=== PATIENT | male | born 1995 | race Caucasian/White ===

== ENCOUNTER 2018-08-06 20:57 | Emergency (ER) | payer OTHER ==
--- NOTE | 2018-08-06 23:49 | ED Physician Chart ---
ED Chief Complaint/HPI - Patient Information Date Seen:: 08/06/18 Time Seen:: 21:00 Chief Complaint:: Sore Throat History of Present Illness:: onset x 2 days of S/T, fever, cough, and congestion; pt denies trauma, H/As, E/ As, neck pain, C/P, SOB, Abd. 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:: Allergies Allergy/AdvReac Type Severity Reaction Status Date / Time No Known Allergies Allergy Verified 08/06/18 21:06 Vitals:: Vital Signs - 8 hr 08/06/18 21:07 Temp 98.5 F HR 85 RR 17 BP 118/77 O2 Sat % 95 Historian:: Patient, Family Member Review:: Nurse's Note Reviewed ED Review of Systems - Review of Systems General/Constitutional: Fever, No chills, No weight loss, No weakness, No diaphoresis, No edema, No loss of appetite Skin: No skin lesions, No rash, No bruising Head: No headache, No light-headedness Eyes: No loss of vision, No pain, No diplopia ENT: No earache, Nasal drainage, Sore throat, No tinnitus Neck: No neck pain, No swelling, No thyromegaly, No stiffness, No mass noted Cardio Vascular: No chest pain, No palpitations, No PND, No orthopnea, No edema Pulmonary: No SOB, Cough, No sputum, No wheezing GI: No nausea, No vomiting, No diarrhea, No pain, No melena, No hematochezia, No constipation, No hematemesis G/U: No dysuria, No frequency, No hematuria, No nacturia Musculoskeletal: No bone or joint pain, No back pain, No muscle pain Endocrine: No polyuria, No polydipsia Psychiatric: No prior psych history, No depression, No anxiety, No suicidal ideation, No homicidal ideation, No auditory hallucination, No visual hallucination Hematopoietic: No bruising, No lymphadenopathy Allergic/Immuno: No urticaria, No angioedema Neurological: No syncope, No focal symptoms, No weakness, No paresthesia, No headache, No seizure, No dizziness, No confusion, No vertigo ED Past Medical History - Past Medical History Obtainable: Yes Past Medical History: No significant medical hx Family History: None Social History: Non Smoker, No Alcohol, No Drug Use, Surgical History: None Psychiatricy History: None Medication: Reviewed Family Medical History - Family Member Mother History Unknown: Yes ED Physical Exam - Physical Examination General/Constitutional: Awake, Well-developed, well-nourished, Alert, No distress, GCS 15, Non-toxic appearing, Ambulatory Head: Atraumatic Eyes: Lids, conjuctiva normal, PERRL, EOMI Skin: Nl inspection, No rash, No skin lesions, No ecchymosis, Well hydrated, No lymphadenopathy ENMT: External ears, nose nl, TM canals nl, Nasal exam nl, Lips, teeth, gums nl Other ENMT comments:: + Nasal Congestion; Pharynx/Tonsils: Injected with mucous crypts; no exudates; no abscesses; no FBs; no airway obstruction Neck: Nontender, Full ROM w/o pain, No JVD, No nuchal rigidity, No bruit, No mass, No stridor Other Neck comments:: supple; no meningeal signs; no cervical tenderness; no bruits Respiratory: Nl effort/Exclusion, Clear to Auscultation, No Wheeze/Rhonchi/Rales Cardio Vascular: RRR, No murmur, gallop, rubs, NL S1 S2, Carotid/Femoral/Distal pulses equal bilaterally GI: No tenderness/rebounding/guarding, No organomegaly, No hernia, Normal BS's, Nondistended, No mass/bruits, No McBurney tenderness, Rectum exam nl Other GI comments:: no pulsatile masses : No CVA tenderness Extremities: No tenderness or effusion, Full ROM, normal strength in all extremities, No edema, Normal digits & nails Neuro/Psych: Alert/oriented, DTR's symmetric, Normal sensory exam, Normal motor strength, Judgement/insight normal, Mood normal, Normal gait, No focal deficits Other Neuro/Psych comments:: no focal signs Misc: Normal back, No paraspinal tenderness ED Septic Shock - . Is Septic Shock (SBP<90, OR Lactate>4 mmol\L) present?: No - <6hrs of presentation: Vital Signs: Vital Signs - 8 hr 08/06/18 21:07 Temp 98.5 F HR 85 RR 17 BP 118/77 O2 Sat % 95 ED Reassessment (Disposition) - Reassessment Reassessment:: pt tolerated po fluids well in ER; pt is asymptomatic upon discharge Reassessment Condition:: Improved - Diagnosis Diagnosis:: Sore Throat; Pharyngitis; Tonsilitis; Congestion; Sinusitis; Cough; Bronchitis; Fever; URI - Aftercare/Follow up Instructions Aftercare/Follow-Up Instructions:: Counseled pt regarding lab results/diagnosis & need follow up, Refer to Discharge Instructions, Counseled pt & family regarding lab results/diagnosis & need follow up Medication Prescribed:: Rx: Amoxicillin 500mg po tid x 10 days; Tylenol 500mg po qid prn fever; Salt Water Gargles; Cool Mist Vaporizer; Fluids - Patient Disposition Discharge/Transfer:: Home Condition at Disposition:: Improved (RTER prn if existing s/s reoccur and/or get worse and/or any other new s/s occur; ACIs given for all above Dx; Refer to ENT Specialist/Ict Educator RAVI; F/U with PMD in one day or prn; RTER prn if concerned)
== END 2018-08-06 21:30 | disposition home or self-care (01) ==
LOC: ER 20:57
DX: J40 Bronchitis, not specified as acute or chronic (principal); J03.90 Acute tonsillitis, unspecified; J32.9 Chronic sinusitis, unspecified; J06.9 Acute upper respiratory infection, unspecified
CPT/HCPCS: Z7502